=== PATIENT | female | born 1940 | race Caucasian/White ===

== ENCOUNTER 2017-12-22 19:31 | Emergency (ER) | payer OTHER ==
--- OUTSIDE RECORDS SUMMARY | 2017-12-22 19:33 | XMS REPORT | Clinical Summary ---
:1940 Author Organization [facility] Address [address] [place] [address] Care Team Providers Name Role Phone Asked, No Pcp Primary Care Provider Unavailable Allergies Active Allergy Reactions Severity Noted Date Comments Lorazepam Other (See Comments) 12/15/2015 Patient stated, "it makes me go out of my mind" Erythromycin Hives 12/15/2015 Current Medications Prescription Sig. Disp. Refills Start Date End Date Status aspirin 325 MG tablet Take 325 mg by Active mouth daily. levothyroxine (SYNTHROID, Take 50 mcg by Active LEVOTHROID) 50 MCG tablet mouth every morning. omeprazole (PriLOSEC) 40 Take 40 mg by mouth Active MG capsule daily. ondansetron (ZOFRAN) 4 MG Take 4 mg by mouth Active tablet 2 (two) times a day as needed. senna (SENOKOT) 8.6 mg Take 1 tablet by Active tablet mouth daily. simvastatin (ZOCOR) 20 MG Take 20 mg by mouth Active tablet nightly. amIODarone (PACERONE) 200 Take 200 mg by Active MG tablet mouth daily. GLUCOPHAGE 500 mg tablet 06/11/2016 Active lancing device with 06/09/2016 Active lancets kit ZESTRIL 2.5 mg tablet 06/25/2016 Active potassium chloride 06/18/2016 Active (K-DUR) 20 MEQ CR tablet blood glucose control, 06/12/2016 Active normal solution furosemide (LASIX) 40 mg Take 40 mg by mouth Active tablet 2 (two) times a day. buPROPion XL (WELLBUTRIN Take 150 mg by Active XL) 150 MG 24 hr tablet mouth daily. hydromorPHONE (DILAUDID) Take 4 mg by mouth Active 4 MG tablet every 12 (twelve) hours. Half tablet DULoxetine (CYMBALTA) 60 Take 60 mg by mouth Active MG capsule daily. ferrous sulfate 325 (65 Take 325 mg by Active FE) MG tablet mouth daily with breakfast. polyethylene glycol Take 17 g by mouth Active (MIRALAX) 17 gram packet daily. linaclotide (LINZESS) 145 Take 145 mcg by Active mcg capsule mouth daily before breakfast. traMADol (ULTRAM) 50 mg Take 50 mg by mouth Active tablet every 6 (six) hours as needed for moderate pain. ALPRAZolam (XANAX) 0.5 MG Take 0.5 mg by Active tablet mouth nightly as needed for anxiety. docusate sodium (COLACE) Take 100 mg by Active 100 MG capsule mouth 2 (two) times a day. NEURONTIN 600 mg tablet 09/26/2016 Active HYDROcodone-acetaminophen 10/01/2016 Active (XODOL 10-300) 10-300 mg per tablet Active Problems Problem Noted Date CHF (congestive heart failure) 12/15/2015 Encounters Date Type Specialty Care Team Description 09/07/2017 Telephone Cardiothoracic Surgery Urmila Espinosa MA 12/25/2016 Hospital Encounter Cardiothoracic Surgery Maximo Pires MD 12/25/2016 Anesthesia Event Cardiothoracic Surgery Dennis Osuna MD 12/25/2016 Procedure Pass Cardiothoracic Surgery 12/25/2016 Surgery Cardiothoracic Surgery Maximo Pires, EGD WITH DILATION ; Esophagram after 12/21/2016 Social History Tobacco Use Types Packs/Day Years Used Date Never Smoker Alcohol Use Drinks/Week oz/Week Comments No Sex Assigned at Date Recorded Not on file Last Filed Vital Signs Vital Sign Reading Time Taken Blood Pressure 147/72 12/25/2016 10:41 AM CDT Pulse 60 12/25/2016 10:41 AM CDT Temperature 36.6 C (97.8 F) 12/25/2016 10:41 AM CDT Respiratory Rate 17 12/25/2016 10:41 AM CDT Oxygen Saturation 97% 12/25/2016 10:41 AM CDT Inhaled Oxygen Concentration - - Weight 61 kg (134 lb 7 oz) 12/25/2016 6:15 AM CDT Height 172.7 cm (5' 8") 12/25/2016 6:15 AM CDT Body Mass Index 20.44 12/25/2016 6:15 AM CDT Plan of Treatment Health Maintenance Due Date Last Done Comments SHINGRIX VACCINE (#1) 1988 ZOSTER VACCINE 1998 PNEUMOCOCCAL POLYSACCHARIDE VACCINE AGE 65 AND OVER 12/14/2003 PNEUMOCOCCAL-13 12/14/2003 INFLUENZA VACCINE 12/30/2017 Implants Implanted Type Area [employer] Officer Device Expiration Model / Identifier Date Serial / Lot Dilator Rhonda Espgl Clnc Wire Guided [id number] 18-20mm Cre - [id number] Surgical N/A: N/A [facility] ENDOSCOPY [id number] / Implanted: 12/25/2016 (Quantity not on file) Implants; / Expanders; Extenders; Surgical Wires Procedures Procedure Name Priority Date/Time Associated Comments Diagnosis POC GLUCOSE Routine 12/25/2016 11:28 Results for this AM CDT procedure are in the results section. POC GLUCOSE Routine 12/25/2016 9:33 Results for this AM CDT procedure are in the results section. XR CHEST 1 VW STAT 12/25/2016 9:21 Results for this PORTABLE AM CDT procedure are in the results section. POC GLUCOSE Routine 12/25/2016 8:36 Results for this AM CDT procedure are in the results section. OR FL < 1 HOUR Routine 12/25/2016 7:55 Results for this AM CDT procedure are in the results section. NC AN ELECTIVE Routine 12/25/2016 7:42 ENDOTRACHEAL AIRWAY AM CDT Procedure Note - Suad Steinberg MATERIALS PLANNER/PRODUCTION PLANNER - 12/25/2016 7:39 AM CDT Airway Date/Time: 12/25/2016 7:39 AM Performed by: SUAD STEINBERG Authorized by: DENNIS OSUNA Location: OR Urgency: Elective Difficult Airway: No Anesthesiologist: DENNIS OSUNA Resident/MATERIALS PLANNER/PRODUCTION PLANNER: SUAD STEINBERG Performed by: resident/MATERIALS PLANNER/PRODUCTION PLANNER Preoxygenated with 100% O2: Yes C-spine Precautions Maintained Throughout: Yes Mask Ventilation: Easy mask Final Airway Type: Endotracheal airway Final Endotracheal Airway: ETT Cuffed: Yes Technique Used: Direct laryngoscopy Devices/Methods Used in Placement: Intubating stylet Insertion Site: Oral Blade Type: Mcallister Laryngoscope Blade/Videolaryngoscope Blade Size: 3 ETT Size (mm): 7.0 Cuff at minimum occlusion pressure: Yes Measured from: Lips ETT to Lips (cm): 20 Placement Verified by: CO2 detection Laryngoscopic view: Grade I - full view of glottis Rapid Sequence Induction (RSI): No Modified RSI: No Number of Attempts at Approach: 1 after 12/21/2016 Results POC glucose (12/25/2016 11:28 AM)Only the most recent of3 resultswithin the time period is included. POC glucose 170 (H) 65 - 99 mg/dL [facility] DEPARTMENT OF PATHOLOGY AND Comment: [facility] Notified RN No Action Needed Meter ID: [id number] Aviation Boatswain'S Mate: Jackie Saldana Performing Organization Address [facility] Phone Number [facility] DEPARTMENT OF PATHOLOGY AND [address] [phone] [facility] XR Chest 1 Vw Portable (12/25/2016 9:21 AM) Narrative Performed At EXAMINATION:XR CHEST 1 VW PORTABLE [facility] CLINICAL H[facility]ORY:Post-op surgery COMPARISON:December 19, 2015 IMPRESSION: 1.Right jugular catheter extends into the superior vena cava. 2.Volume loss at the left lung base is similar to the prior study. 3.There is some vascular congestion. 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 [id number] Procedure Note Interface, Radiology Results Incoming - 12/25/2016 9:28 AM CDT EXAMINATION: XR CHEST 1 VW PORTABLE CLINICAL HISTORY: Post-op surgery COMPARISON: December 19, 2015 IMPRESSION: 1. Right jugular catheter extends into the superior vena cava. 2. Volume loss at the left lung base is similar to the prior study. 3. There is some vascular congestion. 4. 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 [id number] Performing Organization Address [facility] Phone Number [facility] [address] [place] [address] OR [place] < 1 Hour (12/25/2016 7:55 AM) Narrative Performed At IMPRESSION: C-arm fluoroscopy under one hour was provided in the OR for [facility] the referring physician. A radiologist was not present during the procedure. Refer to the Operative report issued by the performing provider for procedure details. LOCATION: [facility] #9 PROCEDURE: EGD START TIME: 709 FINISH TIME: 754 FLUORO TIME: :39 DOSE (mGy): 7.6 TECH(S): AB Procedure Note Interface, Radiology Results Incoming - 12/25/2016 12:59 PM CDT IMPRESSION: C-arm fluoroscopy under one hour was provided in the OR for the referring physician. A radiologist was not present during the procedure. Refer to the Operative report issued by the performing provider for procedure details. LOCATION: [facility] OR #9 PROCEDURE: EGD START TIME: 709 FINISH TIME: 754 FLUORO TIME: :39 DOSE (mGy): 7.6 TECH(S): AB Performing Organization Address City/State/Zipcode Phone Number [facility] [address] [place] [address] after 12/21/2016 Insurance Payer Benefit Plan / Group Subscriber ID Type Phone Address [facility] DUAL [facility]TE [facility] xxxxxxxxx O Home: [address] [phone] [place], [place] [id number]
[2017-12-22] MEDS ORDERED: LIDOCAINE 1% MPF 5 ML VIAL ONE (20:02)
[2017-12-22] MEDS ORDERED: TETANUS & DIPHTHERIA TOX,ADULT 0.5 ML VIAL ONE (20:02)
[2017-12-22 20:05] LABS: Absolute Lymphocytes (CBC) 0.8 K/uL (0.7-4.9); Absolute Monocytes 0.5 K/uL (0.1-1.3); Absolute Neutrophil 2.5 K/uL (1.8-8.0); Basophils % 0.7 % (0-1.3); Eosinophils % 2.2 % (0-4.4); Lymphocytes % 20.2 % (15.3-44.8); MCH 34.4 pg (27.0-35.0); MCV 101.9 fL (80-100); MPV 7.2 fL (7.6-11.3); Monocytes % 11.7 % (3.3-12.3); RBC Red Blood Cell Count 3.24 M/uL (3.86-4.86)
[2017-12-22 20:27] LABS: Potassium 3.7 mmol/L (3.5-5.1)
--- NOTE | 2017-12-22 21:10 | RAD REPORT ---
EXAM DESCRIPTION: CT - Head C Spine Cap Lukas [place]anes - 12/22/2017 8:49 pm CLINICAL HISTORY: Fall, head, neck, chest and abdomen pain COMPARISON: CT trauma gram September 2016 TECHNIQUE: Axial [address] head images were obtained. Axial [address] cervical spine images were obtaine d with sagittal and coronal reconstruction images reviewed. During dynamic enhancement of 100mL non-i onic contrast, axial 5 mm images of the chest, abdomen and pelvis were obtained. Sagittal and coronal thoracic and lumbar spine reconstruction images generated and reviewed. All CT scans are performed using dose optimization technique as appropriate and may include automated exposure control or mA/KV adjustment according to patient size. FINDINGS: No intracranial hemorrhage, mass or edema. No midline shift or abnormal fluid collection. Moderately large area of encephalomalacia involves the right temporal lobe. This is similar to compar shahid. Prominent atrophy and chronic ischemic changes are present. Ventricular size is in proportion. Mastoid air cells are clear. No acute paranasal sinus finding. Small right frontal scalp hematoma pre sent. No skull fracture. CT cervical spine imaging shows normal height. Normal alignment of the vertebrae. No disc space narro wing. No paraspinal mass or hematoma seen. Facet joint degenerative changes are present. Central lulu l detail is inherently limited. Concerns for traumatic disc herniation or traumatic cord injury can b e further addressed with MR imaging. No pneumothorax is present. Bilateral lung base interstitial stranding is present. There is patchy no dularity in the lateral lower right lung field. Small left pleural effusion is present. No mediastina l hematoma and the aorta and pulmonary arteries are unremarkable. Old rib trauma changes are present. No acute rib finding seen. Patient has esophageal interposition implant. The proximal anastomosis sh ows no acute finding. Most of the interposition is extrathoracic in location again entering the anter ior lower chest. No significant change from prior imaging identified. CT abdomen and pelvis show no injury to solid abdominal viscera. Cholecystectomy clips are present. N o abnormal biliary tree dilatation. No acute bowel injury. Bowel anastomotic site show no acute findi ng. No free air, free fluid or abnormal stranding. Well filled urinary bladder shows no acute finding . Disc and bony degenerative changes are present. The 50% L1 compression fracture has not change from c omparison. Fluid retention is seen in the subcutaneous fatty tissues. IMPRESSION: No hemorrhage or acute intracranial finding. Prominent atrophy and chronic ischemic ward ges are present along with right temporal lobe encephalomalacia. Findings are stable from comparison. Mild for age cervical spine degenerative change with no acute finding. No significant CT Chest finding. Small left pleural effusion with lung base interstitial opacification and minimal nodularity lateral right base. Pleural and parenchymal findings are new from September 2016. Patchy pneumonia is certainly pos sible. Pleural fluid and lung parenchymal findings are probably not acute trauma related. No acute findings in the abdomen or pelvis. Additional nonacute findings are detailed in the body of the report.
--- NOTE | 2017-12-22 21:40 | ER ---
Nurse's Notes [facility] Name: Lindsay Wilde Age: 77 yrs Sex: Female : 1940 Arrival Date: 12/22/2017 Time: 19:35 Bed 26 Private MD: Diagnosis: Laceration without foreign body of other part of head;Other slipping, tripping and stumbling and falls Presentation: 12/22 19:39 Presenting complaint: EMS states: they were toned out for report from [facility] bb of finding pt on floor in front of her wheelchair with laceration to forehead. Care prior to arrival: Cervical collar in place. Glucose check: 183. Mechanism of Injury: Fall. Trauma event details: Injury occurred in the [facility], Injury occurred: at home. Injury occurred: December 22, 2017. 19:39 Acuity: MARGARITA 2 bb 19:39 Method Of Arrival: EMS: [facility] bb 19:55 Transition of care: patient was received from another setting of care (long-term care facility), [facility]. Onset of symptoms was December 22, 2017. Risk Assessment: Do you want to hurt yourself or someone else? Patient reports no desire to harm self or others. Initial Sepsis Screen: Does the patient meet any 2 criteria? No. Patient's initial sepsis screen is negative. Does the patient have a suspected source of infection? No. Patient's initial sepsis screen is negative. Trauma Activation: Alert Physician: ED Physician; Name: DIEUDONNE; Notified At: 19:24; Arrived At: Physician: General Surgeon; Name: ; Notified At: 19:24; Arrived At: Physician: Radiology; Name: RONIT FARFAN BRITTANY; Notified At: 19:24; Arrived At: 19:24 Physician: Respiratory; Name: PASTOR; Notified At: 19:24; Arrived At: 19:24 Physician: Lab; Name: ; Notified At: 19:24; Arrived At: Historical: - Allergies: 20:03 Ativan; bb 20:03 Erythromycin; bb - Home Meds: 20:03 amiodarone 200 mg oral tab 1 tab once daily [Active]; Cymbalta 60 mg oral cpDR 1 cap bb twice a day [Active]; Depakote Sprinkles 125 mg oral cpSP 4 caps every 12 hours [Active]; GlycoLax 17 gram/dose oral powd once daily [Active]; levetiracetam 250 mg oral tab 2 times per day [Active]; levothyroxine 100 mcg oral tab 1 tab once daily [Active]; Metoprolol Tartrate 12.5 MG Oral 1 tab 2 times per day [Active]; mirtazapine 30 mg Oral TbDL 1 tab once daily [Active]; gabapentin 300 mg oral cap 1 cap 3 times per day [Active]; benztropine 1 mg Oral tab 1 tab once daily [Active]; cephalexin 500 mg Oral cap 1 cap every 12 hours [Active]; - PMHx: 20:03 Hypertension; Dementia; GERD; Anxiety; Depression; IBS; bb - Immunization history: Last tetanus immunization: unknown. - Social history:: Smoking status: unknown. - Ebola Screening: : No symptoms or risks identified at this time. Screenin:39 Abuse screen: Denies threats or abuse. Tuberculosis screening: No symptoms or risk bb factors identified. 20:13 Nutritional screening: No deficits noted. Fall Risk Fall in past 12 months (25 points). rv Secondary diagnosis (15 points) seizures, impaired mobility. Primary Survey: 19:39 A: Airway: patent. Breathing/Chest: Respiratory pattern: regular, Respiratory effort: bb spontaneous, Breath sounds: coarse, Chest inspection: symmetrical rise and fall of the chest. Circulation: Heart tones present. Pulses: palpable right radial artery and left radial artery. Skin color: pale, Skin temperature: warm. Disability Verbal Stimuli. 20:12 Reassessment Airway Airway Patent Breathing/Chest Respiratory pattern Regular. rv Secondary Survey: 19:39 HEENT: Head Other laceration to right forehead with edema. Gastrointestinal: No bb deficits noted. : No deficits noted. Musculoskeletal: Reports pain in back. Assessment: 19:39 General: Appears uncomfortable, cachectic, Behavior is flat, listless. Pain: Complains bb of pain in back, head. Neuro: Level of Consciousness is lethargic, Oriented to person, Pupils are non-reactive. Cardiovascular: Heart tones S1 S2 present Capillary refill < 3 seconds Patient's skin is warm and dry. Respiratory: Respiratory effort is shallow, Breath sounds are coarse bilaterally. GI: Abdomen is non-distended, Bowel sounds present X 4 quads. Abd is soft X 4 quads. : Derm: Skin is dry, Skin is pale, Skin temperature is warm. Musculoskeletal: Reports pain in back. 20:08 Reassessment: DAUGHTER STATED THAT PATIENT IS ON DNR STATUS. rv 22:17 Reassessment: Patient appears in no apparent distress at this time. Patient and/or rv family updated on plan of care and expected duration. Pain level reassessed. Patient is alert, oriented x 3, equal unlabored respirations, skin warm/dry/pink. CALLED IN [facility] TO ARRANGE TRANSPORT FOR THE PATIENT. AWAITING TRANSPORT. 23:11 Reassessment: Patient appears in no apparent distress at this time. Patient and/or rv family updated on plan of care and expected duration. Pain level reassessed. Patient is alert, oriented x 3, equal unlabored respirations, skin warm/dry/pink. STILL AWAITING TRANSPORT FROM [facility]. 12/23 00:03 Reassessment: AFTER WAITING FOR THE [facility] TO ARRANGE TRANSPORT, THEY CALLED IN TO rv SAY THAT THEY CALL 911 FOR AMBULANCE. DAUGHTER DECIDED TO TAKE THE PATIENT HERSELF BACK TO [facility]. Vital Signs: 12/22 19:37 BP 128 / 67; Pulse 85; Resp 19; Temp 98.7(O); Pulse Ox 97% on 3 lpm NC; Weight 68.04 kg bb (R); Height 5 ft. 6 in. (167.64 cm) (R); 20:09 BP 99 / 55; Pulse 57; Pulse Ox 96% on R/A; rv 21:47 BP 103 / 56; rv 21:47 Pulse 58; Pulse Ox 94% on R/A; rv 22:03 BP 108 / 62; rv 23:11 BP 118 / 63; Pulse 58; Pulse Ox 98% on R/A; rv 19:37 Body Mass Index 24.21 (68.04 kg, 167.64 cm) bb Ramya Coma Score: 19:39 Eye Response: to voice(3). Verbal Response: confused(4). Motor Response: localizes bb pain(5). Total: 12. Trauma Score (Adult): 19:39 Eye Response: to voice(0); Verbal Response: confused(1); Motor Response: localizes bb pain(1); Systolic BP: > 89 mm Hg(4); Respiratory Rate: 10 to 29 per min(4); Ramya Score: 12; Trauma Score: 10 ED Course: 17:45 Inserted saline lock: 20 gauge in left antecubital area, using aseptic technique. rv 19:35 Patient arrived in ED. kr2 19:35 Giovanny Luna MD is Attending Physician. pkl 19:39 Patient has correct armband on for positive identification. Bed in low position. Call bb light in reach. Side rails up X2. 19:40 Saúl Pagan NP is PHCP. pm1 19:48 Triage completed. bb 19:58 Radiology exam delayed due to lab results not completed at this time. (BUN/Creatinine). vm2 20:14 Oxygen administration via nasal cannula \T\ 2L/min Response to oxygen therapy: symptoms rv improved. 20:14 Thermoregulation: warm blanket given to patient. rv 20:[address] via stretcher. 20:49 CT Traumagram (Head C Spine CAP W Con) In Process Unspecified. EDMS 21:46 Assist provider with laceration repair on head (forehead) that was 2.5 cm. or less rv using sutures. Set up tray. Performed by Saúl Pagan EMPLOYMENT TRAINING SPECIALIST Dressed with 4X4s, Patient tolerated well. 12/23 00:05 IV discontinued, bleeding controlled, No redness/swelling at site. Pressure dressing rv applied. Administered Medications: 12/22 20:06 Drug: Tetanus-Diphtheria Toxoid Adult 0.5 ml {Cane Weigher Helper: [employer]. Exp: kr2 02/18/2020. Lot #: [id number]. } Route: IM; Site: right deltoid; 22:19 Follow up: Response: No adverse reaction rv Intake: 19:39 PO: 0ml; Total: 0ml. bb Outcome: 21:40 Discharge ordered by . pm1 12/23 00:04 Discharged to longterm. Report called to MELVINA rv Condition: improved Discharge instructions given to family, Instructed on discharge instructions, medication usage, wound care. 00:05 Patient left the ED. rv Signatures: Dispatcher [employer] EDMS Giovanny Luna MD MD pkKiersten Duong RN RN bb Warren, Shannon Saúl Pagan, EMPLOYMENT TRAINING SPECIALIST EMPLOYMENT TRAINING SPECIALIST pm1 [facility] Juliana Fernandes, ANDRAE RN kr2 Arturo Sainz, ANDRAE RN rv Corrections: (The following items were deleted from the chart) 12/22 20:05 19:37 BP 128 / 67; Pulse 85bpm; Resp 19bpm; Temp 98.7F Oral; Height 5 ft.; kr2 bb
--- NOTE | 2017-12-22 21:41 | EDPHYS ---
Physician Documentation [facility] Name: Lindsay Wilde Age: 77 yrs Sex: Female : 1940 Arrival Date: 12/22/2017 Time: 19:35 Bed 26 Private MD: ED Physician Giovanny Luna HPI: 12/22 20:00 This 77 yrs old Female presents to ER via EMS with complaints of Fall Injury, pm1 Head Injury-Adult. 20:00 Details of fall: The patient fell from seated position, out of a wheelchair. Onset: The pm1 symptoms/episode began/occurred just prior to arrival. Associated injuries: The patient sustained injury to the head, laceration, 1.5 cm(s), of the forehead. Patient was seated in her wheelchair at [facility] and feel forward off her chair resulting in laceration to her forehead. Patient with dementia and her baseline is alert only to person per EMS and [facility]. Patient complaining of headache. Historical: - Allergies: 20:03 Ativan; bb 20:03 Erythromycin; bb - Home Meds: 20:03 amiodarone 200 mg oral tab 1 tab once daily [Active]; Cymbalta 60 mg oral cpDR 1 cap bb twice a day [Active]; Depakote Sprinkles 125 mg oral cpSP 4 caps every 12 hours [Active]; GlycoLax 17 gram/dose oral powd once daily [Active]; levetiracetam 250 mg oral tab 2 times per day [Active]; levothyroxine 100 mcg oral tab 1 tab once daily [Active]; Metoprolol Tartrate 12.5 MG Oral 1 tab 2 times per day [Active]; mirtazapine 30 mg Oral TbDL 1 tab once daily [Active]; gabapentin 300 mg oral cap 1 cap 3 times per day [Active]; benztropine 1 mg Oral tab 1 tab once daily [Active]; cephalexin 500 mg Oral cap 1 cap every 12 hours [Active]; - PMHx: 20:03 Hypertension; Dementia; GERD; Anxiety; Depression; IBS; bb - Immunization history: Last tetanus immunization: unknown. - Social history:: Smoking status: unknown. - Ebola Screening: : No symptoms or risks identified at this time. ROS: 20:05 Constitutional: Negative for fever, chills, and weight loss, Eyes: Negative for injury, pm1 pain, redness, and discharge, ENT: Negative for injury, pain, and discharge, Neck: Negative for injury, pain, and swelling, Cardiovascular: Negative for chest pain, palpitations, and edema, Respiratory: Negative for shortness of breath, cough, wheezing, and pleuritic chest pain, Abdomen/GI: Negative for abdominal pain, nausea, vomiting, diarrhea, and constipation, Back: Negative for injury and pain, MS/Extremity: Negative for injury and deformity, Skin: Negative for injury, rash, and discoloration. 20:05 Neuro: Positive for headache. 20:05 Unable to obtain ROS due to baseline dementia. Exam: 20:05 Constitutional: This is a well developed, well nourished patient who is awake, alert, pm1 and in no acute distress. 20:05 Eyes: Pupils equal round and reactive to light, extra-ocular motions intact. Lids and lashes normal. Conjunctiva and sclera are non-icteric and not injected. Cornea within normal limits. Periorbital areas with no swelling, redness, or edema. ENT: Nares patent. No nasal discharge, no septal abnormalities noted. Tympanic membranes are normal and external auditory canals are clear. Oropharynx with no redness, swelling, or masses, exudates, or evidence of obstruction, uvula midline. Mucous membranes moist. Neck: Trachea midline, no thyromegaly or masses palpated, and no cervical lymphadenopathy. Supple, full range of motion without nuchal rigidity, or vertebral point tenderness. No Meningismus. Chest/axilla: Normal chest wall appearance and motion. Nontender with no deformity. No lesions are appreciated. Cardiovascular: Regular rate and rhythm with a normal S1 and S2. No gallops, murmurs, or rubs. Normal PMI, no JVD. No pulse deficits. Respiratory: Lungs have equal breath sounds bilaterally, clear to auscultation and percussion. No rales, rhonchi or wheezes noted. No increased work of breathing, no retractions or nasal flaring. Abdomen/GI: Soft, non-tender, with normal bowel sounds. No distension or tympany. No guarding or rebound. No evidence of tenderness throughout. Back: No spinal tenderness. No costovertebral tenderness. Full range of motion. 20:05 MS/ Extremity: Pulses equal, no cyanosis. Neurovascular intact. Full, normal range of motion. 20:05 Head/face: Exam is negative for frankel signs, deformity, raccoon eyes, Noted is no obvious of injury or deformity except a laceration(s), that is jagged, of the forehead. 20:05 Skin: Appearance: normal except for affected area, injury, laceration(s), the wound is approximately 1.5 cm(s), of the forehead. 20:05 Neuro: Orientation: to person, unable to test, the patient has a history of dementia, Motor: moves all fours. 21:15 Neck: C-spine: C-collar is removed, after CT scanning reveals no obvious unstable pm1 abnormality. Vital Signs: 19:37 BP 128 / 67; Pulse 85; Resp 19; Temp 98.7(O); Pulse Ox 97% on 3 lpm NC; Weight 68.04 kg bb (R); Height 5 ft. 6 in. (167.64 cm) (R); 20:09 BP 99 / 55; Pulse 57; Pulse Ox 96% on R/A; rv 21:47 BP 103 / 56; rv 21:47 Pulse 58; Pulse Ox 94% on R/A; rv 22:03 BP 108 / 62; rv 23:11 BP 118 / 63; Pulse 58; Pulse Ox 98% on R/A; rv 19:37 Body Mass Index 24.21 (68.04 kg, 167.64 cm) bb Vincent Coma Score: 19:39 Eye Response: to voice(3). Verbal Response: confused(4). Motor Response: localizes bb pain(5). Total: 12. Trauma Score (Adult): 19:39 Eye Response: to voice(0); Verbal Response: confused(1); Motor Response: localizes bb pain(1); Systolic BP: > 89 mm Hg(4); Respiratory Rate: 10 to 29 per min(4); Ramya Score: 12; Trauma Score: 10 Laceration: 21:36 Wound Repair of 1.5cm ( 0.6in ) subcutaneous laceration to forehead. Irregularly pm1 shaped.. Distal neuro/vascular/tendon intact. Anesthesia: Local anesthetic administered with 2 mls of 1% lidocaine. Wound prep: Extensive cleansing with hibiclenz by nurse, Wound irrigation with saline by nurse, Wound explored extensively, Copious irrigation. Skin closed with 3 6-0 Prolene using simple sutures and sterile technique. Dressed with 4x4's, Yuliana. Patient tolerated well. MDM: 19:35 Patient medically screened. pkl 21:36 Data reviewed: vital signs. Data interpreted: Pulse oximetry: on room air is 96 %. pm1 Interpretation: normal. Counseling: I had a detailed discussion with the patient and/or guardian regarding: the historical points, exam findings, and any diagnostic results supporting the discharge/admit diagnosis, lab results, radiology results, discussed with daughter at bedside. Daughter reports patient is at her normal mental state with dementia. 12/22 19:43 Order name: Basic Metabolic Panel; Complete Time: 20:46 pm1 12/22 19:43 Order name: CBC with Diff; Complete Time: 20:13 pm12/22 19:41 Order name: CT Traumagram (Head C Spine CAP W Con); Complete Time: 21:11 pm1 12/22 19:43 Order name: Creatinine for Radiology; Complete Time: 20:46 pm12/22 21:20 Order name: Urine Dipstick--Ancillary (enter results); Complete Time: 22:18 ms 12/22 19:43 Order name: Urine Dipstick-Ancillary (obtain specimen); Complete Time: 21:46 pm1 12/22 19:43 Order name: Straight Cath - Urine; Complete Time: 21:46 pm1 12/22 19:43 Order name: Labs collected and sent; Complete Time: 20:04 pm12/22 19:43 Order name: EKG; Complete Time: 19:44 pm12/22 19:43 Order name: EKG - Nurse/Tech; Complete Time: 20:04 pm12/22 19:43 Order name: Prolene, Sutures; Complete Time: 20:04 pm12/22 19:43 Order name: Dressing - Wound; Complete Time: 20:04 pm12/22 19:43 Order name: Gloves, Sterile; Complete Time: 20:04 pm12/22 19:43 Order name: Setup Suture Tray; Complete Time: 20:04 pm1 Administered Medications: 20:06 Drug: Tetanus-Diphtheria Toxoid Adult 0.5 ml {Web Engineer: [employer]. Exp: kr2 02/18/2020. Lot #: [id number]. } Route: IM; Site: right deltoid; 22:19 Follow up: Response: No adverse reaction rv Disposition: 12/23 00:30 Co-signature as Attending Physician, Giovanny Luna MD. uzair Disposition: 12/22/17 21:40 Discharged to Home. Impression: Laceration without foreign body of other part of head, Other slipping, tripping and stumbling and falls. - Condition is Stable. - Discharge Instructions: Fall Prevention in the Home, Facial Laceration, Fall Prevention in Hospitals, Adult. - Medication Reconciliation Form, Thank You Letter form. - Follow up: Emergency Department; When: As needed; Reason: Worsening of condition. Follow up: Private Physician; When: 1 - 2 days; Reason: Wound Recheck, Recheck today's complaints, Continuance of care, Re-evaluation by your physician. - Problem is new. - Symptoms have improved. Signatures: Dispatcher [employer] EDMS Giovanny Luna MD MD pkl Ballard, Brenda, RN RN bb Saúl Pagan, LUZ [employer] CLE[employer] MACHINE OPERATOR pm1 Juliana Fernandes RN RN kr2 Arturo Sainz RN RN rv Corrections: (The following items were deleted from the chart) 00:05 12/22 21:40 12/22/2017 21:40 Discharged to Home. Impression: Laceration without foreign rv body of other part of head; Other slipping, tripping and stumbling and falls. Condition is Stable. Forms are Medication Reconciliation Form, Thank You Letter, Antibiotic Education, Prescription Opioid Use. Follow up: Emergency Department; When: As needed; Reason: Worsening of condition. Follow up: Private Physician; When: 1 - 2 days; Reason: Wound Recheck, Recheck today's complaints, Continuance of care, Re-evaluation by your physician. Problem is new. Symptoms have improved. pm1
[2017-12-22 22:17] LABS: Urine Blood NEGATIVE (NEG); Urine Glucose NEGATIVE (NEG); Urine Protein NEGATIVE (NEG); Urine Specific Gravity 1.015 (1.005-1.030); Urine pH 5.5 (5.0-7.0)
[2017-12-23 00:16] VITALS: TEMP 98.7
[2017-12-23 00:20] VITALS: BP 118/63; O2SAT 98
--- NOTE | 2017-12-23 06:49 | EKG ---
Test Date: 2017-12-22 Test Time: 19:55:46 Sap Senior Developer: MEASUREMENT RESULTS: Intervals: Rate: 67 [place]: 174 QRSD: 104 QT: 366 QTc: 386 [place]: P: 75 OH: 174 QRS: 33 T: 51 INTERPRETIVE STATEMENTS: Normal sinus rhythm with sinus arrhythmia Nonspecific T wave abnormality Abnormal ECG Compared to ECG 09/30/2016 13:58:51 T-wave abnormality now present Sinus bradycardia no longer present Electronically Signed On 12-23-17 06:48:21 CDT by Mj Osei
== END 2017-12-23 00:05 | disposition home or self-care (01) ==
LOC: ER 19:31
PROC: 0HQ1XZZ Repair Face Skin, External Approach (ICD-10-PCS; principal; 2017-12-22)
DX: S01.81XA Laceration without foreign body of other part of head, initial encounter (principal); I10 Essential (primary) hypertension; F03.90 Unspecified dementia, unspecified severity, without behavioral disturbance, psychotic disturbance, mood disturbance, and anxiety; W05.0XXA Fall from non-moving wheelchair, initial encounter; Y93.9 Activity, unspecified; Y92.9 Unspecified place or not applicable; Y99.9 Unspecified external cause status; Z23 Encounter for immunization; Z88.3 Allergy status to other anti-infective agents; Z88.8 Allergy status to other drugs, medicaments and biological substances
CPT/HCPCS: 12011; 36415; 70450; 71260; 72125; 74177; 80048; 81003; 85025; 90714; 93005; 99285; Q9967